=== PATIENT | male | born 1940 | race Caucasian/White ===

== ENCOUNTER 2024-06-22 12:13 | Outpatient (CLI) | payer MEDICARE | END 2024-06-22 23:59 | disposition home or self-care (01) | LOC: RAD 12:13 | PROVIDERS: ATTEND Physician Assistant | DX: R13.12 Dysphagia, oropharyngeal phase (principal); R05.9 Cough, unspecified; Z79.01 Long term (current) use of anticoagulants; Z79.51 Long term (current) use of inhaled steroids; Z79.899 Other long term (current) drug therapy; Z85.038 Personal history of other malignant neoplasm of large intestine; Z92.3 Personal history of irradiation; Z93.3 Colostomy status | CPT/HCPCS: 74230 ==